=== PATIENT | male | born 2000 | race Caucasian/White ===

== ENCOUNTER 2023-06-11 18:09 | Emergency (ER) | payer MEDICAID, SELFPAY ==
[2023-06-11 18:12] VITALS: BP 125/88; PULSE 71; RESP 18; TEMP 37.4; O2SAT 99
--- NOTE | 2023-06-11 19:55 | DI.RAD_ITS ---
Exam(s) XR SHOULDER RT COMPLETE 2+V EXAM: XR SHOULDER RT COMPLETE 2+V CLINICAL HISTORY: Limited ROM after football, pain, tenderness. TECHNIQUE: 2D digital imaging was performed. Five views. COMPARISON: No exams were available for comparison FINDINGS: BONES: No acute fracture is present. No bony destructive lesion is seen. JOINTS: No dislocation present. SOFT TISSUE: Normal. IMPRESSION: Unremarkable radiographs of the right shoulder. DATA REPOSITORY: RADIATION DOSE DELIVERED:
--- NOTE | 2023-06-11 20:09 | W.ED.GENAD ---
Discharge Plan Disposition Patient Disposition: Home Condition: Good Discharge Details Clinical Impression: Acute pain of right shoulder ED Provider: Christina Vallejo Discharge Instructions Instructions: Shoulder Pain (ED) Additional Instructions: Your x-ray and exam are reassuring here today. As we discussed, I would take it easy over the next week and try to avoid any heavy lifting, particularly overhead. May use Tylenol and ibuprofen as needed for discomfort. Please encourage gentle stretching. May advance activity as tolerated. If you develop any new or worsening symptoms please seek care urgently once again. I have asked our care management team to help you with follow up with primary care. You should be seen in the next few weeks in follow up. Stand Alone Forms: Work Release Discharge Data Discharge Date/Time-TO BE ENTERED AT DEPARTURE: 06/11/23 20:38 Medical Decision Making Patient is a pleasant 22-year-old [id number] male presenting today with chief complaint of right shoulder pain. He reports that yesterday he was playing football when he tackled an opponent and wrapped his arms around their body and pulled him to the ground. During that time, the opponents body weight landed on his right shoulder and since then he has been having pain, he is concerned that he may have dislocated his shoulder. Denies any numbness or tingling. Denies other injury at the time of the incident. No history of dislocations or subluxations that he is aware of. On exam, patient appears nontoxic. He has 2+ distal pulses. He has full range of motion although he does endorse symptoms discomfort, particularly laterally with extremes of movement. Neurologically intact, no axillary nerve dysfunction. 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 No appreciable laxity with mobility of the humeral head. Negative speeds, negative Neer and Hawkin. FINDINGS: Bones/joints: No suspicious osseous lytic or blastic lesion. No acute fracture or dislocation. Acromioclavicular and coracoclavicular intervals within normal limits.? Soft tissues: No focal abnormality. IMPRESSION: No acute fracture or dislocation. Disxcussed with patient. Advised sprain/contusion. Encourged RICE, advised APAP or NSAID to help with discomfort. Advisesd he hold off on football until pain is improving. Encouraged f/u with PCP in 1-2 wks for reevaluation. Return precautions discussed. All of their questions and concerns were addressed, he is in agreement with this plan. HPI General Date/Time Provider Initiated Documentation: 06/11/23 19:19. Limitations to Documentation: no limitations. Information obtained by: patient and RN notes reviewed. History of Present Illness 23 year old M presents to the emergency department with the chief complaint of right shoulder pain, described as moderate, Quality is described as aching, and is localized to the right and upper extremity. Patient reports no radiation. Patient started experiencing this day(s) and it has been constant. Immobilization improves symptom(s), Movement worsens symptoms . Patient notes no other symptoms.. Patient did receive the following treatments prior to arrival, none General Stated Complaint: Orthopedic DANNY: 4 Review of Systems Constitutional Constitutional: Reports as per HPI, Denies fever(s), Denies headache(s) and Denies weakness ENT Ears, Nose, Mouth, and Throat: Denies headache(s) Cardiovascular Cardiovascular: Reports as per HPI Musculoskeletal Musculoskeletal: Reports as per HPI and Denies tingling Integumentary/Breasts Skin/Breast: Reports as per HPI, Denies rash and Denies wounds Neurologic Neurologic: Reports as per HPI, Denies headache(s), Denies tingling, Denies paresthesias and Denies weakness PFSH All Active Problems (Updated 06/11/23 @ 20:33 by SAL Squires) Acute pain of right shoulder (Acute) Social History Smoking/Tobacco Use Status: Never Smoking risk assessment performed?: Yes Alcohol Intake: never Drug use: Never Substance use type: does not use Do you feel safe at home: Yes Do you feel safe in your relationship?: Yes Exam Const General: cooperative, healthy appearing, comfortable, no acute distress, well developed and well groomed Nutritional Appearance: average body habitus and well nourished Orientation: alert and awake Resp Effort & Inspection: normal respiratory effort, able to speak in complete sentences and no respiratory distress Cardio Rate: regular rate Rhythm: regular rhythm Skin General skin exam: no rashes or lesions noted Lesions: no lesions Rashes: no rashes Trauma: no lacerations or abrasions Neuro General: patient alert and patient awake Cognition: normal cognition Speech: speech normal Gait: normal gait Motor: muscle tone normal throughout Sensory Exam: no sensory deficits noted Extrem Right upper extremity: normal to inspection, full ROM and normal capillary refill Psych Appearance: grossly normal and well kempt Mental Status: mental status grossly normal Speech and Movement: speech and movement normal Course Vital Signs Vital signs: Vital Signs Temperature 37.4 C 06/11/23 18:12 Pulse 71 06/11/23 18:12 Respiratory Rate 18 06/11/23 18:12 Blood Pressure 125/88 06/11/23 18:12 Pulse Oximetry 99 06/11/23 18:12 Temperature 37.4 C 06/11/23 18:12 Temperature Source Tympanic 06/11/23 18:12 Pulse 71 06/11/23 18:12 Respiratory Rate 18 06/11/23 18:12 Blood Pressure 125/88 06/11/23 18:12 Pulse Oximetry 99 06/11/23 18:12 Oxygen Delivery Method Room Air 06/11/23 18:12 Oxygen Flow Rate 0 06/11/23 18:12
--- NOTE | 2023-06-11 20:10 | DI.VRAD_ITS ---
PROCEDURE INFORMATION: Exam: XR Right Shoulder Exam date and time: 06/11/2023 7:45 PM Age: 22 years old Clinical indication: Other: Limited rom after football, pain, tenderness TECHNIQUE: Imaging protocol: Radiologic exam of the right shoulder. Views: 2 or more views. COMPARISON: No relevant prior studies available. FINDINGS: Bones/joints: No suspicious osseous lytic or blastic lesion. No acute fracture or dislocation. Acromioclavicular and coracoclavicular intervals within normal limits. Soft tissues: No focal abnormality. IMPRESSION: No acute fracture or dislocation. Dictated and Authenticated by: Tani Quesada MD. Ordering:ABDULAZIZ Vasquez MD
[2023-06-11 20:25] VITALS: BP 124/82; PULSE 68; RESP 14; O2SAT 98
--- NOTE | 2023-06-11 21:06 | NUR.NOTE ---
Pt placed on care management referral list for shoulder pain and to st up primary care, within 1 month.
--- NOTE | 2023-06-12 12:18 | CMPROGNOTE_ITS ---
Date of service: 06/12/23 Time of Service: 12:18 Care Management Progress Note Progress Note Text Progress Note Text: CM faxed referral, including ED note and demographics, to [facility]; Dr. Johnson was control manager on 06/11/23 when pt presented to the ED. [facility] to contact pt directly to schedule ED follow up and establish care.
--- NOTE | 2023-06-12 12:18 | PDOC.CMPRO ---
Date of service: 06/12/23 Time of Service: 12:18 Care Management Progress Note Progress Note Text Progress Note Text: CM faxed referral, including ED note and demographics, to [facility]; Dr. Johnson was drug enforcement administration agent on 06/11/23 when pt presented to the ED. [facility] to contact pt directly to schedule ED follow up and establish care.
== END 2023-06-11 20:38 | disposition home or self-care (01) ==
PROVIDERS: Emergency Provider Physician Assistant
DX: M25.511 Pain in right shoulder (principal)
CPT/HCPCS: 99283; 73030

== ENCOUNTER 2024-05-17 10:00 | Emergency (ER) | payer SELFPAY ==
--- NOTE | 2024-05-17 10:00 | RT.EKG_ITS ---
APPROVED REPORT Exam: Resting ECG Reason for Exam: Chest pain Patient Location: E HR:71 bpm ECG Measurements Heart Rate 71 AXIS SC 175 P 77 QRSd 96 QRS 143 QT 392 T 50 QTc 428 Conclusion Sinus rhythm...normal P axis, V-rate 60- 99 ST elevation suggests acute pericarditis...ST >0.10mV, ant/lat/inf
[2024-05-17 10:04] VITALS: BP 147/95; PULSE 76; TEMP 36.9; O2SAT 99
--- NOTE | 2024-05-17 10:46 | DI.RAD_ITS ---
Exam(s) XR CHEST 2V PA LATERAL EXAM: XR CHEST 2V PA LATERAL CLINICAL HISTORY: sob, chest pain, trauma 2 weeks ago TECHNIQUE: 2D digital imaging was performed. Two views. COMPARISON: No exams were available for comparison FINDINGS: HEART: Normal size. Aorta: Not dilated. PULMONARY VASCULATURE: Normal. MEDIASTINUM: Unremarkable. LUNGS: Clear. PLEURAL SPACE: No pleural effusion or pneumothorax. BONE:Unremarkable for age. No rib or spine fractures are visible. SOFT TISSUES: Unremarkable. IMPRESSION: No acute abnormality. DATA REPOSITORY: RADIATION DOSE DELIVERED:
--- NOTE | 2024-05-17 10:55 | W.ED.GENAD ---
Discharge Plan Disposition Patient Disposition: Home Condition: Stable Discharge Details Clinical Impression: Chest pain, Rib injury Primary Care Provider: Unknown,Unknown ED Provider: Alcon Aranda Discharge Instructions Instructions: Blunt Chest Trauma ED Additional Instructions: Please take ibuprofen over the counter. Take 600mg by mouth every 6 hours over the next 1 week. Please contact your primary care physician to arrange follow-up. Return to the ER immediately for any worsening or new concerning symptoms. Discharge Data Discharge Date/Time-TO BE ENTERED AT DEPARTURE: 05/17/24 12:42 HPI General Mode of arrival: ambulatory. Date/Time Provider Initiated Documentation: 05/17/24 10:13. Limitations to Documentation: no limitations. Information obtained by: patient. HPI Narrative: 23-year-old male presents with chief complaint of chest pain. Patient notes left mid anterior chest pain that started a couple weeks ago and has persisted patient states he was playing football and had a significant collision with another player 2 weeks ago. He states it seemed like the wind was knocked out of him. He subsequently developed pain in his chest after this collision. Pain has persisted and seems worse recently. Pain does seem worse when he takes a deep breath. No other trauma sustained. Patient has no associated fever. No rash. Related Data Allergies Allergy/AdvReac Type Severity Reaction Status Date / Time No Known Allergies Allergy Unverified 05/17/24 10:07 General Stated Complaint: Chest/Rib DANNY: 3 Review of Systems All systems reviewed & are unremarkable except as noted in HPI and below Constitutional Constitutional: Denies fever(s) Cardiovascular Cardiovascular: Reports as per HPI and Reports chest pain Exam Const General: cooperative and no acute distress [facility] Head: normocephalic and atraumatic Mouth: moist mucous membranes Eyes Sclera: normal sclerae Neck Neck: trachea midline and supple Resp Auscultation: clear to auscultation bilaterally, no rales, no rhonchi and no wheezes Cardio Rate: regular rate and not tachycardic Rhythm: regular rhythm GI Palpation: soft, not firm, no guarding, no masses, not rigid and nontender Skin General skin exam: no rashes or lesions noted Neuro General: patient alert, patient awake, patient oriented x3 and tone normal Extrem General: no calf tenderness and no edema Psych Appearance: grossly normal Mental Status: mental status grossly normal Course Vital Signs Vital signs: Vital Signs Temperature 36.9 C 05/17/24 10:04 Pulse 76 07/12/24 10:04 Blood Pressure 147/95 H 05/17/24 10:04 Pulse Oximetry 99 05/17/24 10:04 Temperature 36.9 C 05/17/24 10:04 Pulse 76 05/17/24 10:04 Respiratory Effort Normal 05/17/24 10:28 Respiratory Depth Normal 05/17/24 10:28 Respiratory Pattern Normal 05/17/24 10:28 Blood Pressure 147/95 H 05/17/24 10:04 Blood Pressure Position Supine 05/17/24 10:04 Pulse Oximetry 99 05/17/24 10:04 Oxygen Delivery Method Room Air 05/17/24 10:04 Oxygen Flow Rate 0 05/17/24 10:04 Pain Level 4 05/17/24 10:28 Medical Decision Making [id number]?- 23-year-old male here with left-sided anterior chest pain over the past 2 weeks after collision with another player while playing football. Patient is saturating well and is in no respiratory distress. He has clear lung sounds bilaterally. Consider rib fracture versus pneumothorax versus other. Screening EKG was reviewed and interpreted by me: Sinus rhythm 71 bpm, right axis deviation. There is very subtle ST elevation which I suspect represents early repolarization. Consider acute pericarditis although I think this is less likely. Will check labs. Chest x-ray reviewed and interpreted by radiology: Heart is normal size, aorta is not dilated, pulmonary vascular to be normal, mediastinum unremarkable, lungs are clear, there is no pleural effusion or pneumothorax, there is no rib or spine fractures visible. Impression is no acute abnormality. 1223 --Labs reviewed and nondiagnostic. Troponin negative. Plan for discharge with outpatient follow-up. Lab Data Lab results reviewed: Yes I reviewed the patient's lab results. Labs: Laboratory Tests Range/Units 05/17/24 11:02 WBC (4.4-10.8) 10^3/uL 6.97 RBC (4.36-5.78) 10^6/uL 4.78 Hgb (13.5-17.5) g/dL 14.8 Hct (40.0-50.0) % 42.4 MCV (80-95) fL 89 MCH (27.0-33.0) pg 31.0 MCHC (32.0-36.0) % 34.9 RDW (11.8-14.1) % 11.6 L Plt Count (130-400) 10^3/uL 238 MPV (8.0-11.0) fL 9.3 Immature Gran % % 0.3 Neutrophils % % 58.3 Lymphocytes % % 29.4 Monocytes % % 8.9 Eosinophils % % 1.7 Basophils % % 1.4 Nucleated RBC % (0.0-0.3) % 0.0 Absolute Neutrophils (1.2-6.7) 10^3/uL 4.06 Absolute Lymphocytes (1.2-3.4) 10^3/uL 2.05 Absolute Monocytes (0.1-0.8) 10^3/uL 0.62 Absolute Eosinophils (0.0-0.7) 10^3/uL 0.12 Absolute Basophils (0.0-0.2) 10^3/uL 0.10 Sodium (136-145) mmol/L 140 Potassium (3.5-5.1) mmol/L 3.7 Chloride (98-107) mmol/L 103 Carbon Dioxide (21.0-32.0) mmol/L 31.3 Anion Gap (3-11) mmol/L 5.7 BUN (7-18) mg/dL 14 Creatinine (0.70-1.30) mg/dL 1.0 Est GFR (CKD-EPI 2020) (mL/min/1.73m2) 108.46 Glucose (74-106) mg/dL 89 Calcium (8.5-10.1) mg/dL 9.1 Total Bilirubin (0.2-1.0) mg/dL 0.61 AST (15-37) U/L 13 L ALT (16-63) U/L 24 Alkaline Phosphatase (46-116) U/L 29 L Troponin I (< or =60) ng/L < 50 Total Protein (6.4-8.2) g/dL 7.1 Albumin (3.4-5.0) g/dL 4.2 Quality:SDOH Health Related Social Needs: No Data to Display PFSH All Active Problems (Updated 05/17/24 @ 12:25 by Alcon Aranda MD) Rib injury (Acute) Chest pain (Acute) Social History Smoking/Tobacco Use Status: Never Smoking risk assessment performed?: Yes Alcohol Intake: current Alcohol Intake frequency: a few times a month Drug use: Occasionally Substance use type: marijuana Do you feel safe at home: Yes Do you feel safe in your relationship?: Yes PAWSS Have you Been Recently Intoxicated or Drunk Within the Last 30 days?: No Have you Ever Experienced Previous Episodes of Alcohol Withdrawal?: No Have you ever Experienced Withdrawal Seizures?: No Have you ever Experienced Delirium Tremens(DT)s?: No Have you ever undergone Alcohol Rehabilitation Treatment (i.e, inpt ot outpatient treatment programs)?: No Have you ever Experienced Blackouts?: No Have you ever Combined Alcohol with other Downers within the last 90 days?: No Have you ever Combined Alcohol with any other Substance of Abuse during the last 90 days?: No Positive Blood Alcohol level on Presentation? [PCS.BAL]: No Evidence of Increased Autonomic Activity (i.e. HR>120, tremor, sweating, agitation, nausea)?: No Result: 0
[2024-05-17 11:15] LABS: Abs Immature Grans 0.02 10^3/uL (0.0-0.06); Absolute Eosinophil Count 0.12 10^3/uL (0.0-0.7); Absolute Lymphocyte Count 2.05 10^3/uL (1.2-3.4); Absolute Monocyte Count 0.62 10^3/uL (0.1-0.8); Absolute Neutrophil Count 4.06 10^3/uL (1.2-6.7); Basophils % 1.4 %; Eosinophils % 1.7 %; HCT 42.4 % (40.0-50.0); HGB 14.8 g/dL (13.5-17.5); Immature Grans % 0.3 %; Lymphocytes % 29.4 %; MCHC 34.9 % (32.0-36.0); MCV 89 fL (80-95); MPV 9.3 fL (8.0-11.0); Monocytes % 8.9 %; Neutrophils % 58.3 %; Platelet Count 238 10^3/uL (130-400); RBC 4.78 10^6/uL (4.36-5.78); RDW 11.6 % (11.8-14.1); RDW-SD 37.5 fL; WBC 6.97 10^3/uL (4.4-10.8)
[2024-05-17 11:23] VITALS: BP 125/72; PULSE 63; RESP 20; TEMP 37.1; O2SAT 100
[2024-05-17 11:43] LABS: ALT 24 U/L (16-63); AST 13 U/L (15-37); Albumin 4.2 g/dL (3.4-5.0); Alkaline Phosphatase 29 U/L (46-116); Anion Gap 5.7 mmol/L (3-11); BUN 14 mg/dL (7-18); Bilirubin, Total 0.61 mg/dL (0.2-1.0); CO2 31.3 mmol/L (21.0-32.0); Calcium 9.1 mg/dL (8.5-10.1); Chloride 103 mmol/L (98-107); Estimated GFR 108.46 (mL/min/1.73m2); Glucose 89 mg/dL (74-106); Potassium 3.7 mmol/L (3.5-5.1); Sodium 140 mmol/L (136-145); Total Protein 7.1 g/dL (6.4-8.2); Troponin I < 50 ng/L (< or =60)
[2024-05-17] MEDS: Ibuprofen 600 MG TAB PO (12:39)
== END 2024-05-17 12:42 | disposition home or self-care (01) ==
PROVIDERS: Emergency Provider Student in an Organized Health Care Education/Training Program
DX: R07.89 Other chest pain (principal); S29.8XXA Other specified injuries of thorax, initial encounter; W51.XXXA Accidental striking against or bumped into by another person, initial encounter; Y93.61 Activity, american tackle football; Y92.39 Other specified sports and athletic area as the place of occurrence of the external cause
CPT/HCPCS: 80053; 93005; 99285; 71046; 84484; 85025; 93010; 99284